=== PATIENT | female | born 1990 | race Caucasian/White ===

== ENCOUNTER 2017-11-23 14:15 | Emergency (ER) | payer OTHER ==
[2017-11-23 14:24] VITALS: BP 121/88; TEMP 98.8; BMI 23.2
--- NOTE | 2017-11-23 14:25 | PDOC ---
Rapid Medical Evaluation Time Seen by Provider: 11/23/17 14:19 Medical Evaluation: Allergies Allergy/AdvReac Type Severity Reaction Status Date / Time No Known Allergies Allergy Verified 07/24/13 20:29 11/23/17 14:19 This is a 27 year old female with allergies to milk, latex, and NuvaRing who presents with facial swelling since Thursday. She attributes this to an allergic reaction to Sculptra, which is a cosmetic procedure involving injection of lidocaine and collagen into the cheeks, however she states that this swelling is not expected. She had the procedure on 11/11, and returned to the doctor who performed the procedure. She was placed on a Medrol dose pack, which she has been taking since Thursday, along with Benadryl and Keflex. She reports that the swelling has somewhat has improved. She denies wheezing, SOB, sensation of throat tightness, tongue or lip swelling, or any other symptoms. V/s are notable for pulse of 110. Alert, oriented, no distress. Mild facial edema not involving lips, tongue, uvula. Lungs CTAB. No hives. Plan: -Pgu -To FT for further evaluation
--- NOTE | 2017-11-23 15:25 | PDOC ---
History of Present Illness - General History Source: Patient Exam Limitations: No Limitations - History of Present Illness Initial Comments: 11/23/17 15:45 The patient is a 27 year old female with a significant PMH of asthma who presents to the emergency department with 1 week of facial swelling. The patient reports that she recently had a sculptra procedure 2 weeks ago by which she had collagen fillers injected into her face. The patient reports that she started to experience increased swelling of her face a few days ago. The patient reports that she followed up with her surgeon by which she was given a steroid prescription treatment to take over a course of a week. The patient reports that the swelling minimized. She reports that she stopped taking the medications because she was concerned for the side effects. The patient reports that she came in to the ED today because she still has swelling in her face. She reports that she has another follow up appointment with her surgeon and hedis abstractor in 2 days . The patient also reports experiencing congestion . she reports that she had an allergic reaction to ice cream she had recently as well. The patient reports that she assumed that she picked up the lactaid one. She denies any other symptoms. She denies any chest pain, shortness of breath, headache and dizziness. She denies fever, chills, nausea, vomit, diarrhea, constipation or urinary symptoms. The patient denies any other complaints. <Darrius Lui - Last Filed: 11/23/17 15:45> - General History Source: Patient <BangTerese - Last Filed: 11/23/17 16:40> - General Chief Complaint: Allergic Reaction Stated Complaint: SWOLLEN FACE Time Seen by Provider: 11/23/17 14:19 Past History <Darrius Lui - Last Filed: 11/23/17 15:45> - Past Medical History Asthma: Yes COPD: No - Suicide/Smoking/Psychosocial Hx Smoking History: Never smoked Number of Cigarettes Smoked Daily: 1 Cigars Per Day: 1 <Terese Cuenca - Last Filed: 11/23/17 16:40> - Past Medical History Allergies/Adverse Reactions: Allergies Allergy/AdvReac Type Severity Reaction Status Date / Time latex Allergy Verified 11/23/17 14:20 Home Medications: Ambulatory Orders NK [No Known Home Medication] 11/23/17 Review of Systems - Review of Systems Able to Perform ROS?: Yes Comments:: 11/23/17 15:45 GENERAL/CONSTITUTIONAL: No fever or chills. No weakness. HEAD, EYES, EARS, NOSE AND THROAT: (+)Facial swelling. No change in vision. No ear pain or discharge. No sore throat. CARDIOVASCULAR: No chest pain or shortness of breath. RESPIRATORY: No cough, wheezing, or hemoptysis. GASTROINTESTINAL: No nausea, vomiting, diarrhea or constipation. GENITOURINARY: No dysuria, frequency, or change in urination. MUSCULOSKELETAL: No joint or muscle swelling or pain. No neck or back pain. SKIN: No rash NEUROLOGIC: No headache, vertigo, loss of consciousness, or change in strength/ sensation. ENDOCRINE: No increased thirst. No abnormal weight change. HEMATOLOGIC/LYMPHATIC: No anemia, easy bleeding, or history of blood clots. ALLERGIC/IMMUNOLOGIC: No hives or skin allergy. <Darrius Lui - Last Filed: 11/23/17 15:45> *Physical Exam - Vital Signs Last Vital Signs Temp Pulse Resp BP Pulse Ox 98.8 F 110 H 19 121/88 99 11/23/17 14:20 11/23/17 14:20 11/23/17 14:20 11/23/17 14:20 11/23/17 14:20 - Physical Exam Comments: 11/23/17 15:45 GENERAL: Awake, alert, and fully oriented, in no acute distress HEAD: No signs of trauma EYES: PERRLA, EOMI, sclera anicteric, conjunctiva clear ENT: Auricles normal inspection, hearing grossly normal, nares patent, oropharynx clear without exudates. Moist mucosa NECK: Normal ROM, supple, no lymphadenopathy, JVD, or masses LUNGS: Breath sounds equal, clear to auscultation bilaterally. No wheezes, and no crackles HEART: Regular rate and rhythm, normal S1 and S2, no murmurs, rubs or gallops ABDOMEN: Soft, nontender, normoactive bowel sounds. No guarding, no rebound. No masses EXTREMITIES: Normal range of motion, no edema. No clubbing or cyanosis. No cords, erythema, or tenderness NEUROLOGICAL: Cranial nerves II through XII grossly intact. Normal speech, normal gait SKIN: Warm, Dry, normal turgor, no rashes or lesions noted. <Darrius Lui - Last Filed: 11/23/17 15:45> - Vital Signs Last Vital Signs Temp Pulse Resp BP Pulse Ox 98.8 F 110 H 19 121/88 99 11/23/17 14:20 11/23/17 14:20 11/23/17 14:20 11/23/17 14:20 11/23/17 14:20 - Physical Exam HEENT: negative: Sinus Tenderness <Terese Cuenca - Last Filed: 11/23/17 16:40> Moderate Sedation - Procedure Monitoring Vital Signs: Vital Signs Temp Pulse Resp BP Pulse Ox 98.8 F 110 H 19 121/88 99 11/23/17 14:20 11/23/17 14:20 11/23/17 14:20 11/23/17 14:20 11/23/17 14:20 <Darrius Lui - Last Filed: 11/23/17 15:45> - Procedure Monitoring Vital Signs: Vital Signs Temp Pulse Resp BP Pulse Ox 98.8 F 110 H 19 121/88 99 11/23/17 14:20 11/23/17 14:20 11/23/17 14:20 11/23/17 14:20 11/23/17 14:20 <Terese Cuenca - Last Filed: 11/23/17 16:40> Medical Decision Making - Medical Decision Making 11/23/17 15:45 The patient is a 27 year old female with a significant PMH of asthma who presents to the emergency department with 1 week of facial swelling. The patient reports that she recently had a sculptra procedure 2 weeks ago by which she had collagen fillers injected into her face. Patient is requesting to have AMA and lines testing done as ordered by the plastic surgeon. Will instruct the patient to continue her course of treatment of steroids, Keflex, Sudafed, Benadryl. AMA enzyme testing done. Patient was instructed to call back in about a week to 2 weeks for results Repeat pulse at discharge was 10. I discussed the physical exam findings, ancillary test results and final diagnoses with the patient. I answered all of the patient's questions. The patient was satisfied with the care received and felt comfortable with the discharge plan and treatment plan. The Patient agrees to follow up with the primary care physician within 24-72 hours. <Terese Cuenca - Last Filed: 11/23/17 16:40> *DC/Admit/Observation/Transfer - Attestations Scribe Attestion: 11/23/17 15:46 Documentation prepared by Darrius Lui, acting as medical assisting instructor for Charan Cazares MD. <Darrius Lui - Last Filed: 11/23/17 15:45> <Terese Cuenca - Last Filed: 11/23/17 16:40> Diagnosis at time of Disposition: Facial swelling - Discharge Dispostion Disposition: HOME Condition at time of disposition: Stable - Referrals Referrals: Shruti Kennedy [Primary Care Provider] - - Patient Instructions Printed Discharge Instructions: DI for Adverse Drug Reaction -- Allergic Additional Instructions: Your Discharge Instructions: You must call primary care physician within 24 hours to arrange follow-up. Return to the Emergency Department with any new, persistent or worsening symptoms, for fever, chills, SOB, dizziness or any other concerning changes that may occur. Appointment with the plastic surgeon on dermatologists on as scheduled. Return to the ER for shortness of breath. Throat closing or for worsening swelling to the face. He was called emergency room in about a week to 2 weeks for the results of blood testing. - Post Discharge Activity
[2017-11-23 16:20] VITALS: PULSE 100
== END 2017-11-23 16:22 | disposition home or self-care (01) ==
LOC: JERFT 14:15
DX: R60.0 Localized edema (principal); T50.995A Adverse effect of other drugs, medicaments and biological substances, initial encounter; Y92.89 Other specified places as the place of occurrence of the external cause
CPT/HCPCS: 36415; 84703; 86038; 86618; 99281-25

== ENCOUNTER 2018-03-11 18:52 | Emergency (ER) | payer OTHER ==
--- NOTE | 2018-03-11 18:57 | PDOC ---
Rapid Medical Evaluation Time Seen by Provider: 03/11/18 18:53 Medical Evaluation: Allergies Allergy/AdvReac Type Severity Reaction Status Date / Time latex Allergy Verified 11/23/17 14:20 03/11/18 18:53 I have performed a brief in-person evaluation of this patient. The patient presents with a chief complaint of: pelvic pressure since yesterday. Reports frequency in urination and discomfort with urination. Denies vaginal discharge Pertinent physical exam findings are: NAD non tender lower abdomen no cva tenderness I have ordered the following: urine preg, urinalysis The patient will proceed o the Ed for further evaluation.
[2018-03-11 19:03] VITALS: BP 116/72; TEMP 98.9; BMI 23.6
[2018-03-11 19:30] LABS: HCG,QUALITATIVE URINE Negative
[2018-03-11 19:31] LABS: URINE APPEARANCE SLCLOUDY; URINE BILIRUBIN NEGATIVE (<2.0 mg/dL); URINE COLOR LTYELLOW; URINE GLUCOSE (UA) NEGATIVE (NEGATIVE); URINE KETONE NEGATIVE (NEGATIVE); URINE LEUK ESTERASE NEGATIVE (NEGATIVE); URINE NITRITE NEGATIVE (NEGATIVE); URINE PROTEIN NEGATIVE (NEGATIVE); URINE UROBILINOGEN NEGATIVE mg/dL (0.2-1.0)
--- NOTE | 2018-03-11 20:43 | PDOC ---
History of Present Illness - General Chief Complaint: Pain Stated Complaint: PAIN Time Seen by Provider: 03/11/18 18:53 - History of Present Illness Initial Comments: Britany Weinberg is a 27yo woman recently diagnosed with Lupus and Sjogrens who presents today with an enlarged left inguinal lymph node for the past 4-5 days. She reports that she was seen by her scout yesterday and had her "lymphocytes checked" but she was told that the blood work was normal. Ms Weinberg does report that the scout expressed concern about the lymph node, but no other testing was done. Ms Weinberg says that the swelling was "really bad' earlier in the week on Thursday and Thursday. She also noted that her left knee was briefly swollen and painful several days ago, but the symptoms resolved on their own without any treatment, and the knee is no longer bothering her. She avoided walking due to pain but reports that she continued to have full ROM in her leg. She has not noticed any rash on her LLE or abdomen. She denies any nausea, vomiting, constipation, diarrhea, or abdominal pain. She has not had any vaginal discharge or pain, dysuria, hematuria or suprapubic pain. She did note a feeling of pressure when urinating for the past few days. A UA was ordered in triage, and there is currently no sign of infection. She is otherwise asymptomatic. Past History - Past Medical History Allergies/Adverse Reactions: Allergies Allergy/AdvReac Type Severity Reaction Status Date / Time latex Allergy Verified 03/11/18 18:53 Home Medications: Ambulatory Orders Fluticasone Prop 0.05% Nasal [Flonase -] 1 - 2 spray NS BID 03/11/18 Asthma: Yes COPD: No Other medical history: sjogren's syndrome// lupus - Suicide/Smoking/Psychosocial Hx Smoking History: Current some day smoker Number of Cigarettes Smoked Daily: 1 Cigars Per Day: 1 Information on smoking cessation initiated: No Review of Systems - Review of Systems Comments:: General: No fevers, no chills, no weight or appetite change, no malaise. +night sweats HEENT: No changes in vision, no changes in hearing, no congestion, no sore throat. +Dry mouth, +dry eyes CV: No chest pain, no palpitations, no LE edema Pulm: No SOB, no cough, no wheezing GI: No nausea or vomiting, no change in bowel habits, no melena : No frequency, no urgency, no dysuria Musc: No back pain, no joint swelling, no recent injury Skin: No rash, no lesions, no erythema Endo: No excessive thirst, no heat/cold intolerance Rheum: h/o Lupus, h/o sjogrens Heme: No unusual bruising or bleeding, no swollen glands Neuro: No syncope, no numbness/tingling, no focal weakness Vasc: No claudication Psych: No recent change in mood, no SI or HI *Physical Exam - Vital Signs Last Vital Signs Temp Pulse Resp BP Pulse Ox 98.9 F 113 H 18 116/72 100 03/11/18 18:59 03/11/18 18:59 03/11/18 18:59 03/11/18 18:59 03/11/18 18:59 - Physical Exam Comments: General: Comfortable, no acute distress HEENT: PERRL, EOMI, MMM, voice normal, normal neck ROM, no LAD Cards: RRR, no murmur appreciated Pulm: Comfortable on room air, clear to auscultation bilaterally Abd: Soft, nontender, nondistended. Palpable left inguinal node, rubbery, mobile , mildly TTP : No CVA tenderness. External vaginal exam without erythema, edema, lesions, abrasions, drainage, bleeding Skin: No rash, no insect bites, no lesions or abrasions Ext: Atraumatic. No LE edema. ROM intact. Strength 5/5 and equal bilaterally Vasc: Extremities WWP. Palpable radial and pedal pulses bilaterally Neuro: A&Ox3, CN grossly intact, normal speech, motor/sensory grossly intact and symmetric Psych: Mood appropriate to situation ED Treatment Course - LABORATORY CBC & Chemistry Diagram: 03/11/18 20:45 03/11/18 20:45 - ADDITIONAL ORDERS Additional order review: Laboratory Results 03/11/18 19:00 Urine Color Ltyellow Urine Appearance Slcloudy Urine pH 7.0 Ur Specific Carpenter 1.010 Urine Protein Negative Urine Glucose (UA) Negative Urine Ketones Negative Urine Blood Negative Urine Nitrite Negative Urine Bilirubin Negative Urine Urobilinogen Negative Ur Leukocyte Esterase Negative Urine HCG, Qual Negative Medical Decision Making - Medical Decision Making 03/11/18 21:06 Eduardo Weinberg is a 27yo recently diagnosed with Lupus and Sjogrens, not currently on any immunosuppressants, who presents with a palpable, mobile, rubbery left inguinal lymph node measuring approximately 1 inch in diameter. - No symptoms other than feeling of pressure when urinating, no UTI on UA - Reports recent measles vaccine last Thursday - Likely reactive lymph node, no indication of current infection. CBC, CMP to evaluate for infection or sign of abdominal pathology Update: - Labs without abnormalities - Given that physical exam and labs are normal, most likely a reactive lymph node. No obvious infection, may be related to recent MMR vaccine. - Will discharge home. Discussed importance of PMD follow up and return precautions with Ms Weinberg. She states understanding and will follow up with her regular physician. Seen and discussed with Dr Hernandez. *DC/Admit/Observation/Transfer Diagnosis at time of Disposition: Inguinal lymphadenopathy - Discharge Dispostion Disposition: HOME Condition at time of disposition: Good Decision to Admit order: No - Referrals Referrals: Shruti Kennedy [Primary Care Provider] - - Patient Instructions Printed Discharge Instructions: DI for Lymphadenopathy Additional Instructions: Discharge Instructions: - You were seen in the ED for an enlarged lymph node in your left groin. This is called lymphadenopathy and is likely a reaction to a minor infection or to your recent vaccination - The swelling should improve over the next few days. You may use ibuprofen ( Advil/Motrin) or acetaminophen (Tylenol) for pain and discomfort. Applying warm compresses to the area may also help. - Make an appointment to see your primary physician within the next 2-3 days to ensure that the enlarged lymph node is resolving - Seek medical attention if you develop persistent fevers to 101F or higher; if you notice leg swelling, pain or rash; if you have persistent abdominal pain, nausea, vomiting; if you have painful urination or unusual vaginal discharge. You may see your primary physician for these problems. Return to the ED if you are unable to move your leg at all or if you have severe pain, swelling, or redness in the area of the lymph node. - Post Discharge Activity Forms/Work/School Notes: Back to Work
[2018-03-11 20:58] LABS: BASO % 0.4 % (0-2.0); EOS % 0.8 % (0-4.5); HEMATOCRIT 37.9 % (32.4-45.2); HEMOGLOBIN 12.6 GM/dL (10.7-15.3); LYMPH % 33.7 % (8-40); MCH 28.6 pg (25.7-33.7); MCHC 33.3 g/dl (32.0-36.0); MEAN CELL VOLUME 85.9 fl (80-96); MEAN PLT VOLUME 7.3 fl (7.5-11.1); MONO % 7.6 % (3.8-10.2); NEUT % 57.5 % (42.8-82.8); PLATELET COUNT 338 K/MM3 (134-434); RBC 4.41 M/mm3 (3.60-5.2); RDW 13.7 % (11.6-15.6)
--- NOTE | 2018-03-11 21:01 | PDOC ---
Attending Attestation - HPI HPI: 03/11/18 21:09 The patient is a 27-year-old female, with a past medical history of lupus and Sjogrens - recently diagnosed, who presents to the ED with 4-5 days of left inguinal lymph node swelling. The patient denies any lesions, ulcers, warts, or infectious etiology. Patient reports getting the MMR vaccine 1 week ago. - Physicial Exam PE: 03/11/18 21:14 GENERAL: Awake, alert, and fully oriented, in no acute distress HEAD: No signs of trauma EYES: PERRLA, EOMI, sclera anicteric, conjunctiva clear ENT: Auricles normal inspection, hearing grossly normal, nares patent, oropharynx clear without exudates. Moist mucosa NECK: Normal ROM, supple, no lymphadenopathy, JVD, or masses LUNGS: Breath sounds equal, clear to auscultation bilaterally. No wheezes, and no crackles HEART: Regular rate and rhythm, normal S1 and S2, no murmurs, rubs or gallops ABDOMEN: Soft, nontender, normoactive bowel sounds. No guarding, no rebound. No masses GENITALIA: External genitalia were normal. No lesions, ulcers, warts or infectious etiology. No vaginal discharge. EXTREMITIES: Normal range of motion, no edema. No clubbing or cyanosis. No cords, erythema, or tenderness. No cellulitis of the lower extremities. NEUROLOGICAL: Cranial nerves II through XII grossly intact. Normal speech, normal gait SKIN: Warm, Dry, normal turgor, no rashes or lesions noted. <Lou Santana - Last Filed: 03/11/18 21:08> - Resident Resident Name: Mounika Dupont - ED Attending Attestation I have performed the following: I have examined & evaluated the patient, The case was reviewed & discussed with the resident, I agree w/resident's findings & plan, Exceptions are as noted - Medical Decision Making 03/11/18 20:59 I, Dr. Mercy Hernandez, DO, attest that this document has been prepared under my direction and personally reviewed by me in its entirety. I further attest, that it accurately reflects all work, treatment, procedures and medical decision -making performed by me. 03/11/18 20:59 a/p: 27yo female with L inguinal lymph node -will send labs -recently dx with sjogrens and lupus -off steroids -will send labs -no signs of infection to genital region -no LE cellulitis or infection -recent vaccination -will monitor and reassess -pt is nontoxic in appearance 03/11/18 21:32 labs reviewed and stable pt with MMR vaccine last week, lymph node could be reactive however, no emergent inpt work up required pt can follow up with her PMD as outpt saw her rheum yesterday <Mercy Hernandez - Last Filed: 03/11/18 21:33> Attestations - Attestations 03/11/18 21:18 Documentation prepared by Lou Santana, acting as emergency medical technician/driver for Mercy Hernandez DO. <Lou Santana - Last Filed: 03/11/18 21:08>
[2018-03-11 21:27] LABS: ANION GAP 8 MMOL/L (8-16); BILIRUBIN,TOTAL 0.3 mg/dL (0.2-1.0); BLOOD UREA NITROGEN 9 mg/dL (7-18); CALCIUM 10.2 mg/dL (8.5-10.1); CHLORIDE 102 mmol/L (98-107); CO2 30 mmol/L (21-32); CREATININE 0.6 mg/dL (0.55-1.02); GLUCOSE,RANDOM 84 mg/dL (74-106); POTASSIUM 3.9 mmol/L (3.5-5.1); SGOT/AST 22 U/L (15-37); SGPT/ALT 42 U/L (12-78); SODIUM 140 mmol/L (136-145); TOT PROT 7.9 g/dl (6.4-8.2)
[2018-03-11 21:28] LABS: ALK PHOS 81 U/L (45-117)
[2018-03-12 04:22] VITALS: PULSE 93
== END 2018-03-11 21:50 | disposition home or self-care (01) ==
LOC: JER 18:52
DX: R59.1 Generalized enlarged lymph nodes (principal); M32.9 Systemic lupus erythematosus, unspecified; M35.00 Sjogren syndrome, unspecified
CPT/HCPCS: 36415; 80053; 81003; 84703; 85025; 99283-25

== ENCOUNTER 2021-08-26 19:21 | Emergency (ER) | payer OTHER ==
[2021-08-26 19:39] VITALS: BP 127/70; PULSE 102; TEMP 99.1; BMI 23.4
[2021-08-26] MEDS ORDERED: SODIUM CHLORIDE 0.9% 500 ML INFUS.BAG IV ONE (20:28)
[2021-08-26 21:24] LABS: BASO % 0.2 % (0-2.0); EOS % 4.6 % (0-4.5); HEMATOCRIT 36.1 % (32.4-45.2); HEMOGLOBIN 12.3 GM/dL (10.7-15.3); LYMPH % 29.1 % (8-40); MCH 29.6 pg (25.7-33.7); MCHC 33.9 g/dl (32.0-36.0); MEAN CELL VOLUME 87.3 fl (80-96); MEAN PLT VOLUME 7.1 fl (7.5-11.1); MONO % 7.9 % (3.8-10.2); NEUT % 58.2 % (42.8-82.8); PLATELET COUNT 326 10^3/uL (134-434); RBC 4.14 M/mm3 (3.60-5.2); RDW 13.4 % (11.6-15.6); WHITE BLOOD COUNT 7.7 K/mm3 (4.0-10.0)
[2021-08-26 21:27] LABS: EPI CELLS 5 /uL (0-25.1); HYALINE CASTS 1 /uL (0-3.1); PH,URINE 6.5 (5.0-8.0); URINE APPEARANCE CLEAR; URINE BACTERIA 22 /uL (0-1359); URINE BILIRUBIN NEGATIVE (NEGATIVE); URINE COLOR YELLOW; URINE GLUCOSE (UA) NEGATIVE (NEGATIVE); URINE KETONE NEGATIVE (NEGATIVE); URINE LEUK ESTERASE TRACE (NEGATIVE); URINE NITRITE NEGATIVE (NEGATIVE); URINE PROTEIN NEGATIVE (NEGATIVE); URINE RBC 5 /uL (0-23.9); URINE UROBILINOGEN 0.2 mg/dL (0.2-1.0); URINE WBC 22 /uL (0-25.8)
[2021-08-26 21:42] LABS: CALCIUM 8.6 mg/dL (8.5-10.1)
[2021-08-26 21:43] LABS: ALBUMIN 3.8 g/dl (3.4-5.0); BLOOD UREA NITROGEN 9.2 mg/dL (7-18)
[2021-08-26 21:46] LABS: CREATININE 0.7 mg/dL (0.55-1.3)
[2021-08-26 21:47] LABS: BILIRUBIN,TOTAL 0.1 mg/dL (0.2-1); TOT PROT 7.3 g/dl (6.4-8.2)
== END 2021-08-26 22:45 | disposition home or self-care (01) ==
LOC: JER 19:21
DX: R10.2 Pelvic and perineal pain (principal)
CPT/HCPCS: 36415; 76830-TC; 80053; 81003; 84703; 85025; 87086; 87491; 87591; 99284-25

== ENCOUNTER 2022-02-21 09:43 | Emergency (ER) | payer OTHER ==
[2022-02-21 09:54] VITALS: BP 124/78; PULSE 78; RESP 18; TEMP 97.8; BMI 24.4
[2022-02-21] MEDS ORDERED: SODIUM CHLORIDE 0.9% 500 ML INFUS.BAG IV ONE ×2 (11:13→13:04)
[2022-02-21] MEDS ORDERED: ONDANSETRON 4 MG/2 ML VIAL IVPUSH ONE (11:13)
[2022-02-21] MEDS ORDERED: KETOROLAC TROMETHAMINE 30 MG/1 ML VIAL IVPUSH ONE (11:13)
[2022-02-21] MEDS ORDERED: KETOROLAC TROMETHAMINE 30 MG/1 ML VIAL ONE (11:46)
[2022-02-21] MEDS ORDERED: ONDANSETRON 4 MG/2 ML VIAL ONE (11:46)
[2022-02-21 12:20] LABS: BASO % 0.1 % (0-2.0); HEMATOCRIT 39.2 % (32.4-45.2); HEMOGLOBIN 13.1 GM/dL (10.7-15.3); LYMPH % 17.1 % (8-40); MCH 28.9 pg (25.7-33.7); MCHC 33.3 g/dl (32.0-36.0); MEAN CELL VOLUME 86.8 fl (80-96); MEAN PLT VOLUME 7.4 fl (7.5-11.1); MONO % 5.7 % (3.8-10.2); NEUT % 77.1 % (42.8-82.8); PLATELET COUNT 314 10^3/uL (134-434); RBC 4.52 M/mm3 (3.60-5.2); RDW 13.8 % (11.6-15.6); WHITE BLOOD COUNT 8.5 K/mm3 (4.0-10.0)
[2022-02-21 12:37] LABS: CALCIUM 9.4 mg/dL (8.5-10.1)
[2022-02-21 12:38] LABS: BLOOD UREA NITROGEN 8.7 mg/dL (7-18)
[2022-02-21 12:41] LABS: CREATININE 0.8 mg/dL (0.55-1.3)
[2022-02-21 12:43] LABS: BILIRUBIN,TOTAL 0.5 mg/dL (0.2-1); TOT PROT 8.1 g/dl (6.4-8.2)
[2022-02-21 13:37] LABS: EPI CELLS 15 /uL (0-25.1); HYALINE CASTS 2 /uL (0-3.1); URINE APPEARANCE CLEAR; URINE BACTERIA 449 /uL (0-1359); URINE BILIRUBIN NEGATIVE (NEGATIVE); URINE COLOR YELLOW; URINE GLUCOSE (UA) NEGATIVE (NEGATIVE); URINE KETONE 2+ (NEGATIVE); URINE LEUK ESTERASE 1+ (NEGATIVE); URINE NITRITE NEGATIVE (NEGATIVE); URINE PROTEIN TRACE (NEGATIVE); URINE RBC 496 /uL (0-23.9); URINE UROBILINOGEN 0.2 mg/dL (0.2-1.0); URINE WBC 65 /uL (0-25.8)
[2022-02-21 13:38] LABS: HCG,QUALITATIVE URINE Negative
[2022-02-21] MEDS ORDERED: ACETAMINOPHEN 1000 MG/100 ML BAG IVPB ONE (15:07)
[2022-02-21] MEDS ORDERED: morphine CARPU-JECT 2 MG/1 ML DISP.SYRIN IVPUSH ONE (15:17)
[2022-02-21] MEDS ORDERED: ACETAMINOPHEN INJECTION 100 ML IVPB ONE (15:29)
== END 2022-02-21 17:15 | disposition home or self-care (01) ==
LOC: JER 09:43
PROC: 3E033NZ Introduction of Analgesics, Hypnotics, Sedatives into Peripheral Vein, Percutaneous Approach (ICD-10-PCS; principal; 2022-02-21)
PROC: 3E033GC Introduction of Other Therapeutic Substance into Peripheral Vein, Percutaneous Approach (ICD-10-PCS; 2022-02-21)
PROC: 3E033GC Introduction of Other Therapeutic Substance into Peripheral Vein, Percutaneous Approach (ICD-10-PCS; 2022-02-21)
PROC: 3E0333Z Introduction of Anti-inflammatory into Peripheral Vein, Percutaneous Approach (ICD-10-PCS; 2022-02-21)
DX: R10.9 Unspecified abdominal pain (principal)
CPT/HCPCS: 0241U-QW; 36415; 74176-TC; 80053; 81003; 83690; 84703; 85025; 87086; 99284-25